=== PATIENT | male | born 1970 | race African-American/Black ===

== ENCOUNTER 2019-08-21 10:00 | Inpatient (IN) ==
[2019-08-21] MEDS ORDERED: PANTOPRAZOLE 40 MG VIAL IV STA (10:33)
[2019-08-21] MEDS ORDERED: SODIUM CHLORIDE 0.9% 1,000 ML IV STA (10:33)
[2019-08-21 11:09] LABS: Basophils % 0.6 % (0.0-0.8); Eosinophils # 0.1 10*3/uL (0.0-0.87); Eosinophils % 2.3 % (0.00-10.9); Hematocrit 35.3 VOL% (42.0-52.0); Immature Granulocytes % 0.4 %; Immature Granulocytes Absolute 0.02 #; Lymphocytes # 1.2 10*3/uL (1.4-4.0); Lymphocytes % 25.9 % (21.2-54.2); Mean Corpuscular Volume 86.5 FL (87-102); Monocytes % 7.1 % (1.7-12.7); Neutrophils % 63.7 % (38.7-73.9); Platelet Count 279 T/CUMM (130-400); Red Blood Count 4.08 MC/CUMM (3.8-5.5); Red Cell Distribution Width 13.9 % (9.3-17.3); White Blood Count 4.8 T/CUMM (4-12)
[2019-08-21 11:18] LABS: PT Patient Result 10.9 SECS (9.6-12.2); Partial Thromboplastin Time 26.2 SECS (20.8-36.0)
[2019-08-21 11:41] LABS: Eosinophils 1 % (0-10); Hypochromasia 1+; Lymphocytes 29 % (20-55); Platelet Estimate Adequate; Segmented Neutrophils 65 % (50-85); Total Cells Counted 100
[2019-08-21 11:53] LABS: Alanine Aminotransferase 18 U/L (16-61); Albumin 3.4 G/DL (3.4-5.0); Alkaline Phosphatase 78 U/L (45-117); Aspartate Amino Transferase 16 U/L (0-37); Bilirubin,Total < 0.39 MG/DL (0.2-1.0); Blood Urea Nitrogen 16 MG/DL (7-18); Calcium 8.7 MG/DL (8.5-10.1); Estimated Glom Filtration Rate 118 ML/MIN; Glucose 88 MG/DL (74-106); Osmolality,Calculated 285.8 MOS/KG (273-304); Total Protein 7.8 G/DL (6.4-8.3); Troponin I < 0.015 NG/ML (0.00-0.045)
[2019-08-21] MEDS ORDERED: ONDANSETRON 4 MG/2 ML VIAL IV PRN (13:31)
[2019-08-21] MEDS ORDERED: ACETAMINOPHEN 325 MG TABLET PO PRN (13:31)
[2019-08-21] MEDS ORDERED: clonazePAM 0.5 MG TABLET PO PRN (13:37)
[2019-08-21] MEDS ORDERED: LORazepam 1 MG TABLET PO PRN (13:37)
[2019-08-21] MEDS ORDERED: CARBAMAZEPINE 300 MG PO SCH (15:00)
[2019-08-21] MEDS: CYPROHEPTADINE 4 MG TABLET PO SCH ×2 (16:22→23:00)
[2019-08-21] MEDS: BENZTROPINE 1 MG TABLET PO SCH ×2 (16:22→22:59)
[2019-08-21] MEDS: GLYCOPYRROLATE 1 MG TABLET PO SCH ×2 (16:22→23:00)
[2019-08-21] MEDS: QUEtiapine 100 MG TABLET PO SCH ×2 (16:22→23:00)
[2019-08-21] MEDS: SODIUM CHLORIDE 0.9% 1,000 ML IV SCH (16:22)
[2019-08-21] MEDS: risperiDONE 1 MG TABLET PO SCH ×2 (16:22→22:59)
[2019-08-21 18:58] LABS: Hematocrit 31.6 VOL% (42.0-52.0); Hemoglobin 10.9 GM/DL (14.0-18.0)
[2019-08-21] MEDS: AMITRIPTYLINE 25 MG TABLET PO SCH (23:01)
[2019-08-21] MEDS: POLYETHYLENE GLYCOL POWDER 17 GM PACK PO SCH (23:02)
[2019-08-22 05:17] LABS: Basophils % 0.5 % (0.0-0.8); Eosinophils # 0.1 10*3/uL (0.0-0.87); Eosinophils % 1.8 % (0.00-10.9); Hematocrit 30.9 VOL% (42.0-52.0); Hemoglobin 10.5 GM/DL (14.0-18.0); Immature Granulocytes % 0.7 %; Immature Granulocytes Absolute 0.03 #; Lymphocytes % 22.5 % (21.2-54.2); Mean Corpuscular Volume 86.8 FL (87-102); Monocytes % 9.7 % (1.7-12.7); Neutrophils % 64.8 % (38.7-73.9); Platelet Count 262 T/CUMM (130-400); Red Blood Count 3.56 MC/CUMM (3.8-5.5); Red Cell Distribution Width 13.6 % (9.3-17.3); White Blood Count 4.4 T/CUMM (4-12)
[2019-08-22 05:39] LABS: Calcium 8.3 MG/DL (8.5-10.1); Osmolality,Calculated 287.6 MOS/KG (273-304)
[2019-08-22] MEDS: DOCUSATE SODIUM 100 MG CAPSULE PO SCH (10:21)
[2019-08-22] MEDS: risperiDONE 1 MG TABLET PO SCH ×3 (10:21→21:25)
[2019-08-22] MEDS: AMITRIPTYLINE 25 MG TABLET PO SCH ×2 (10:22→21:25)
[2019-08-22] MEDS: BENZTROPINE 1 MG TABLET PO SCH ×3 (10:22→21:25)
[2019-08-22] MEDS: CYPROHEPTADINE 4 MG TABLET PO SCH ×3 (10:22→21:25)
[2019-08-22] MEDS: AMANTADINE 100 MG CAPSULE PO SCH (10:22)
[2019-08-22] MEDS: QUEtiapine 100 MG TABLET PO SCH ×3 (10:23→21:25)
[2019-08-22] MEDS: PANTOPRAZOLE 40 MG TABLET PO SCH (10:24)
[2019-08-22] MEDS: CHOLECALCIFEROL 1,000 UNIT TABLET PO SCH (10:24)
[2019-08-22] MEDS: POLYETHYLENE GLYCOL POWDER 17 GM PACK PO SCH (10:24)
[2019-08-22] MEDS: LINACLOTIDE 145 MCG CAPSULE PO SCH (10:42)
[2019-08-22] MEDS: GLYCOPYRROLATE 1 MG TABLET PO SCH ×3 (11:22→21:25)
[2019-08-22] MEDS: SODIUM CHLORIDE 0.9% 1,000 ML IV SCH ×3 (11:24→19:13)
[2019-08-23] MEDS: POLYETHYLENE GLYCOL POWDER 17 GM PACK PO SCH ×4 (07:38→22:35)
[2019-08-23] MEDS ORDERED: LACTATED RINGERS 1,000 ML IV SCH (08:00)
[2019-08-23] MEDS ORDERED: PHENYLEPHRINE 1 MG/10 ML SYRINGE IV ONE (09:00)
[2019-08-23] MEDS ORDERED: LIDOCAINE 100 MG/5 ML SYRINGE ONE (09:00)
[2019-08-23] MEDS ORDERED: PROPOFOL 200 MG/20 ML VIAL IV ONE (09:00)
[2019-08-23] MEDS: DOCUSATE SODIUM 100 MG CAPSULE PO SCH (13:01)
[2019-08-23] MEDS: BENZTROPINE 1 MG TABLET PO SCH ×3 (13:01→20:30)
[2019-08-23] MEDS: QUEtiapine 100 MG TABLET PO SCH ×3 (13:02→20:30)
[2019-08-23] MEDS: CYPROHEPTADINE 4 MG TABLET PO SCH ×3 (13:02→20:29)
[2019-08-23] MEDS: GLYCOPYRROLATE 1 MG TABLET PO SCH ×3 (13:02→20:29)
[2019-08-23] MEDS: risperiDONE 1 MG TABLET PO SCH ×3 (13:02→20:29)
[2019-08-23] MEDS: AMITRIPTYLINE 25 MG TABLET PO SCH ×2 (13:02→20:29)
[2019-08-23] MEDS: SODIUM CHLORIDE 0.9% 1,000 ML IV SCH ×2 (13:45)
[2019-08-23] MEDS: PANTOPRAZOLE 40 MG TABLET PO SCH (14:23)
[2019-08-23] MEDS: CHOLECALCIFEROL 1,000 UNIT TABLET PO SCH (14:23)
[2019-08-23] MEDS: AMANTADINE 100 MG CAPSULE PO SCH (14:23)
[2019-08-23] MEDS: LINACLOTIDE 145 MCG CAPSULE PO SCH (14:23)
[2019-08-23] MEDS ORDERED: POLYETHYLENE GLYCOL POWDER 255 GM BOTTLE PO ONE (18:00)
[2019-08-24] MEDS: SODIUM CHLORIDE 0.9% 1,000 ML IV SCH ×2 (03:55→17:04)
[2019-08-24 07:57] LABS: Basophils % 0.2 % (0.0-0.8); Eosinophils # 0.2 10*3/uL (0.0-0.87); Eosinophils % 2.1 % (0.00-10.9); Hematocrit 34.8 VOL% (42.0-52.0); Immature Granulocytes % 0.5 %; Immature Granulocytes Absolute 0.04 #; Lymphocytes # 1.1 10*3/uL (1.4-4.0); Lymphocytes % 12.7 % (21.2-54.2); Mean Corpuscular HGB Conc 34.5 GM/DL (32-36); Mean Corpuscular Volume 85.3 FL (87-102); Mean Platelet Volume 8.3 FL (9.6-12.0); Monocytes % 9.4 % (1.7-12.7); Neutrophils % 75.1 % (38.7-73.9); Platelet Count 323 T/CUMM (130-400); Red Blood Count 4.08 MC/CUMM (3.8-5.5); Red Cell Distribution Width 13.7 % (9.3-17.3); White Blood Count 8.7 T/CUMM (4-12)
[2019-08-24] MEDS: PANTOPRAZOLE 40 MG TABLET PO SCH (08:08)
[2019-08-24] MEDS: DOCUSATE SODIUM 100 MG CAPSULE PO SCH (08:08)
[2019-08-24] MEDS: LACTATED RINGERS 1,000 ML IV SCH (08:08)
[2019-08-24] MEDS: BENZTROPINE 1 MG TABLET PO SCH ×3 (08:08→22:59)
[2019-08-24] MEDS: AMITRIPTYLINE 25 MG TABLET PO SCH ×2 (08:08→22:59)
[2019-08-24] MEDS: risperiDONE 1 MG TABLET PO SCH ×3 (08:08→23:00)
[2019-08-24] MEDS: AMANTADINE 100 MG CAPSULE PO SCH (08:09)
[2019-08-24] MEDS: LINACLOTIDE 145 MCG CAPSULE PO SCH (08:09)
[2019-08-24] MEDS: POLYETHYLENE GLYCOL POWDER 17 GM PACK PO SCH (08:09)
[2019-08-24] MEDS: CYPROHEPTADINE 4 MG TABLET PO SCH ×3 (08:09→23:01)
[2019-08-24] MEDS: CHOLECALCIFEROL 1,000 UNIT TABLET PO SCH (08:09)
[2019-08-24] MEDS: QUEtiapine 100 MG TABLET PO SCH ×3 (08:09→23:00)
[2019-08-24] MEDS: GLYCOPYRROLATE 1 MG TABLET PO SCH ×3 (08:09→23:09)
[2019-08-24 08:26] LABS: Osmolality,Calculated 278.3 MOS/KG (273-304)
[2019-08-24] MEDS ORDERED: POLYETHYLENE GLYCOL POWDER 255 GM BOTTLE PO ONE (10:33)
[2019-08-25] MEDS: LACTATED RINGERS 1,000 ML IV SCH (08:27)
[2019-08-25] MEDS: DOCUSATE SODIUM 100 MG CAPSULE PO SCH (08:27)
[2019-08-25] MEDS: BENZTROPINE 1 MG TABLET PO SCH ×2 (08:27→14:34)
[2019-08-25] MEDS: AMITRIPTYLINE 25 MG TABLET PO SCH (08:33)
[2019-08-25] MEDS: QUEtiapine 100 MG TABLET PO SCH ×2 (08:34→14:34)
[2019-08-25] MEDS: CYPROHEPTADINE 4 MG TABLET PO SCH ×2 (08:34→14:34)
[2019-08-25] MEDS: risperiDONE 1 MG TABLET PO SCH ×2 (08:34→14:34)
[2019-08-25] MEDS: GLYCOPYRROLATE 1 MG TABLET PO SCH ×2 (08:34→14:34)
[2019-08-25] MEDS: LINACLOTIDE 145 MCG CAPSULE PO SCH (08:34)
[2019-08-25] MEDS: CHOLECALCIFEROL 1,000 UNIT TABLET PO SCH (08:34)
[2019-08-25] MEDS: PANTOPRAZOLE 40 MG TABLET PO SCH (08:34)
[2019-08-25] MEDS: AMANTADINE 100 MG CAPSULE PO SCH (08:34)
[2019-08-25 10:59] VITALS: BP 128/96
[2019-08-25] MEDS ORDERED: PROPOFOL 200 MG/20 ML VIAL IV ONE (12:00)
== END 2019-08-25 15:28 | disposition home or self-care (01) | DRG 253 ==
LOC: N.ED 10:00 → N.EDINP 10:00 → SUATTDRO 13:31 → OBSVTOIN 13:31 → N.5E 14:18 → SUATTDRO 08-22 15:07
PROVIDERS: ADMIT Emergency Medicine; ATTEND Emergency Medicine